=== PATIENT | female | born 1995 | race Asian ===

== ENCOUNTER 2016-06-28 14:30 | Outpatient (CLI) | payer OTHER ==
[2016-06-28 14:50] VITALS: BMI 34.4
--- NOTE | 2016-06-28 16:21 | US ---
EXAMINATION : OB LIMITED HISTORY: Postdates. COMPARISONS: Exam dated 04/18/2016. FINDINGS: There is a live intrauterine fetus with a heart rate of 153 bpm. Is in vertex presentation. There is polyhydramnios with an ARMINDA of 23.39 cm. Placenta is grade 3. Two-vessel cord is again demonstrated. IMPRESSION: 1. Live intrauterine fetus in vertex presentation. 2. Polyhydramnios. 3. Two-vessel cord.
== END 2016-06-28 16:38 | disposition home or self-care (01) ==
LOC: FBCOUT 14:30 → FBC 14:31 → FBCOUT 16:38
PROVIDERS: ATTEND Family Medicine
DX: O48.0 Post-term pregnancy (principal); O40.9XX0 Polyhydramnios, unspecified trimester, not applicable or unspecified; Z3A.00 Weeks of gestation of pregnancy not specified

== ENCOUNTER 2016-07-01 10:02 | Outpatient (CLI) | payer OTHER | END 2016-07-01 11:00 | disposition home or self-care (01) | LOC: FBCOUT 10:02 → FBC 10:04 → FBCOUT 11:00 | PROVIDERS: ATTEND Family Medicine | DX: Z34.03 Encounter for supervision of normal first pregnancy, third trimester (principal); Z3A.40 40 weeks gestation of pregnancy ==

== ENCOUNTER 2016-07-05 14:34 | Outpatient (CLI) | payer OTHER ==
[2016-07-05 14:52] VITALS: BMI 35.3
== END 2016-07-05 15:27 | disposition home or self-care (01) ==
LOC: FBCOUT 14:34 → FBC 14:37 → FBCOUT 15:27
PROVIDERS: ATTEND Family Medicine
DX: Z34.03 Encounter for supervision of normal first pregnancy, third trimester (principal); Z3A.41 41 weeks gestation of pregnancy

== ENCOUNTER 2016-07-07 06:14 | Inpatient (IN) | payer OTHER ==
[2016-07-07] MEDS ORDERED: LIDOCAINE 1% (PRES FREE) 30 ML VIAL ONE (07:25)
[2016-07-07] MEDS ORDERED: LIDOCAINE Viscous 2% 15 ML UDCUP ONE (07:25)
[2016-07-07] MEDS ORDERED: OXYTOCIN 10 UNITS/ML VIAL ONE (07:25)
[2016-07-07] MEDS ORDERED: SODIUM CHLORIDE 0.9% FLUSH 10 ML ONE (07:25)
[2016-07-07] MEDS ORDERED: MINERAL OIL 25 ML BOT ONE (07:25)
[2016-07-07] MEDS ORDERED: IV START KIT ONE (07:25)
[2016-07-07] MEDS ORDERED: PUMP TUBING ONE (07:26)
[2016-07-07] MEDS ORDERED: OXYTOCIN IN NS 500 ML IV ONE (07:26)
[2016-07-07] MEDS ORDERED: OXYTOCIN IN NS 500 ML IV PRN (07:53)
[2016-07-07] MEDS ORDERED: OXYTOCIN IN NS 334 ML IV PRN (07:53)
[2016-07-07 08:12] LABS: HEMATOCRIT 36.6 % (37.0-47.0); HEMOGLOBIN 11.6 gm/l (12.0-16.0); MEAN CELL VOLUME 84.9 fl (81.0-99.0); MEAN CORPUSCULAR HEMOGLOBIN 26.9 pg (27.0-31.0); MEAN CORPUSCULAR HGB CONC 31.7 g/dl (33.0-37.0); RED CELL DISTRIBUTION WIDTH 13.3 % (11.5-14.5)
[2016-07-07] MEDS: MISOPROSTOL 25 MCG TABLET VG SCH ×4 (09:02→22:30)
[2016-07-07 09:23] VITALS: BMI 35.8
--- NOTE | 2016-07-07 13:01 | PCMAN ---
OB Admission Note - History : 1 Term: 0 : 0 Abortions (S&E): 0 Livin EDC:: 06/28/16 Gestational Age (weeks): 41 Days (#/7): 2 Admit Cervical Dilation:: 1-2 Admit Cervical Effacement (%):: 60 Admit Station:: -3 Admit Presentaton:: vertex Membrane Status: Intact Contractions: Yes Contraction Frequency:: irregular Heart Rate:: 145 Status:: category 1 EFW:: 7.5 Summary of Course:: Normal course, 2 VC discovered on US otherwise no growth restriction - Labs Blood Type: A (+) positive Hct/Hgb:: 36.6/11.6 Rubella Status: Immune GBS Status: Negative Abnormal Labs: None - Physical Exam General: Afebrile, No Acute Distress Psych/Mental Status: Mood/Affect Appropriate Neurological: Grossly Intact, Alert, Oriented x 4, Normal Gait, Normal Speech, Normal Reflexes, Cranial Nerves 3-12 Intact HEENT: Atraumatic, PERRLA, EOMI, Mucous membr. moist/pink Lungs: Clear to Auscultation Bilaterally Cardiovascular: Regular Rate and Rhythm, No Murmur Abdomen: Normal Bowel Sounds Genitourinary: Normal Female Genitalia Extremities: Full ROM, No Edema DTR: Patellar (L): 2+ (Brisk, Normal), Patellar (R): 2+ (Brisk, Normal) Skin: Normal Color, No Rash - Problems (1) Post term Status: Acute Code: O48.0Assessment/Plan: Induction started with cytotec, followed by Pitocin (2) Two vessel umbilical cord in gross , antepartum Status: Acute Code: O09.899Assessment/Plan: NO IUGR on US, isolated (3) Primiparous, antepartum Status: Acute Code: Z34.00
--- NOTE | 2016-07-07 13:03 | PDOC36 ---
Provider Note Subject: S/ Cramping but not overly uncomfortable O/ UC q 4-5 min cervix 2cm/75%/-2 FHR category until just after I checked her there was a 2 min decel to 90s, recovered w position change but variability a bit decreased, will get reactive NST before starting Pit A/Early labor P/Pitocin when deemed safe. Lisa Charles MD
[2016-07-07] MEDS: LACTATED RINGERS 1,000 ML IV SCH ×2 (13:30→18:11)
[2016-07-07] MEDS ORDERED: LACTATED RINGERS 1,000 ML IV SCH (14:45)
[2016-07-07] MEDS ORDERED: PENICILLIN G POTASSIUM 5 MMU in NS 0.9% (MINI-BAG PLUS) 100 ML IV ONE (15:00)
[2016-07-07] MEDS ORDERED: NS 0.9% (MINI-BAG PLUS) 100 ML IV ONE (15:01)
[2016-07-07] MEDS ORDERED: PENICILLIN G POTASSIUM 5 MMU VIAL ONE (15:01)
--- NOTE | 2016-07-07 18:05 | PDOC36 ---
Provider Note Subject: S/ Terrible left flank pain started suddenly right before I came in, contractions are mild O/VSS AFeb, FHR 130s cat 1, 1 or 2 variable decels in last 2 hours Cervix 2.5/85%/-2/mid Left thoracic paraspinal muscle tender and spasm palpated A/Slow progress in labor GBS positive, PCN protocol going P/Continue current Pitocin, will try heating pad and dose of Fentanyl for the back. Lisa Charles MD
[2016-07-07] MEDS: FENTANYL 100 MCG/2 ML VIAL IV PRN (18:25)
[2016-07-07] MEDS ORDERED: PENICILLIN G 3 MIL UNIT PREMIX 50 ML IV ONE ×2 (19:00→23:01)
[2016-07-07] MEDS: PENICILLIN G 3 MIL UNIT PREMIX 3 MMU in Premix (D5W) 50 ml 1 EACH IV SCH ×2 (19:07→23:04)
--- NOTE | 2016-07-07 21:56 | PDOC36 ---
Provider Note Subject: S/ More painful contractions now O/VSS Afeb, FHR 150 category 1 Cervix 4 cm/90%/-2, AROM clear fluid A/Active labor now P/Patient will likely want epidural, trying a bath first. Lisa Charles MD
[2016-07-07] MEDS ORDERED: EPIDURAL PUMP SET ONE (23:50)
[2016-07-07] MEDS ORDERED: FENTANYL/ROPIVACAINE EPIDURAL 250 ML EP ONE (23:50)
[2016-07-08] MEDS ORDERED: EPIDURAL PROCEDURE TRAY ONE (00:43)
[2016-07-08] MEDS ORDERED: ROPIVACAINE 0.5% 30 ML VIAL ONE (00:43)
[2016-07-08] MEDS: MISOPROSTOL 25 MCG TABLET VG SCH ×2 (02:32→05:53)
[2016-07-08] MEDS ORDERED: PENICILLIN G 3 MIL UNIT PREMIX 50 ML IV ONE ×2 (02:53→07:03)
[2016-07-08] MEDS: PENICILLIN G 3 MIL UNIT PREMIX 3 MMU in Premix (D5W) 50 ml 1 EACH IV SCH ×3 (03:08→18:30)
[2016-07-08] MEDS: LACTATED RINGERS 1,000 ML IV SCH ×2 (03:29→05:02)
[2016-07-08] MEDS: FENTANYL 100 MCG/2 ML VIAL IV PRN (07:51)
--- NOTE | 2016-07-08 08:13 | PDOC36 ---
Provider Note Subject: S/ Pain worsened since 0600, most of pain is in mid back O/VSS Afeb FHR 130, category 2, variable decels with some contractions, overall improved variability Cervix 9.5/100%/0 A/ Nearing stage 2, baby looks better overall on monitor P/Continue expectant management. Start pushing when complete and she is feeling more of an urge to push. Lisa Charles MD
[2016-07-08] MEDS ORDERED: LIDOCAINE 1% (PRES FREE) 30 ML VIAL IF ONE (10:40)
--- NOTE | 2016-07-08 11:27 | PCMDEL ---
Delivery Note - Labor 1st stage (hr/min):: 11 hr/ 14 min 2nd stage (hr/min):: 1 hr/ 38 min 3rd stage (hr/min):: 6 min Total (hr/min):: 14 hr/ 35 min Pushed (hr/min):: 1 hr - Delivery Delivery (Date): 07/08/16 Delivery (Time): 10:34 Gender: Female Presentation: Cephalic Position: OA Umbilical Cord: 2 Vessel Delayed Cord Clamping:: < 1 min 1 Minute Total: 8 5 Minute Total: 9 Placenta:: intact EBL:: 150 ml Perineum:: 2nd degree perineal lac Suture:: 2-0 chromic Anesthesia/Meds:: epidural and local for repair Length ROM:: 12 hr/ 51 min Comments:: Slow progress through labor but eventually delivered. There were some category 2 periods of time on the strip but it improved toward the end and never looked ominous. The baby was limp at delivery but tone normalized within 1 minute. Cord was milked and cut at about 30 sec to get the baby over for resusitation. Mother and stable post .
[2016-07-08] MEDS ORDERED: ACETAMINOPHEN 325 MG TABLET PO PRN (11:36)
[2016-07-08] MEDS ORDERED: CALCIUM CARBONATE 500 MG TAB.CHEW PO PRN (11:36)
[2016-07-08] MEDS ORDERED: BENZOCAINE/MENTHOL 60 APPLIC/BOT TP PRN (11:36)
[2016-07-08] MEDS ORDERED: OXYCODONE HCL 5 MG TABLET PO PRN (11:36)
[2016-07-08] MEDS ORDERED: OXYTOCIN IN NS 167 ML IV PRN (11:36)
[2016-07-08] MEDS ORDERED: LANOLIN 50 APPLIC/7G TUBE TP PRN (11:36)
[2016-07-08] MEDS: PRENATAL VIT/FE FUMARATE/FA 1 TABLET PO SCH (18:31)
[2016-07-08] MEDS: IBUPROFEN 800 MG TABLET PO PRN (19:59)
[2016-07-09] MEDS: IBUPROFEN 800 MG TABLET PO PRN ×3 (01:56→14:06)
[2016-07-09 07:36] LABS: HEMATOCRIT 32.3 % (37.0-47.0); HEMOGLOBIN 10.2 gm/l (12.0-16.0)
[2016-07-09] MEDS: PRENATAL VIT/FE FUMARATE/FA 1 TABLET PO SCH (07:56)
[2016-07-09 08:11] VITALS: BP 117/64
[2016-07-09] MEDS ORDERED: DOCUSATE SODIUM 100 MG CAPSULE PO SCH (09:00)
--- NOTE | 2016-07-09 12:42 | PDOC39B ---
Hospital Course: ADMIT DATE: 07/07/16 DISCHARGE DATE: 07/09/16 ADMISSION DIAGNOSES: Post term , 2 vessel umbilical cord, GBS positive PROCEDURES: Spontaneous Vaginal Delivery HISTORY OF PRESENT ILLNESS: 21 year old G1 T0 L0 at 41 weeks 3 days presented for post dates induction, started with cytotec and moved to [facility]. SHE went into active labor with the amniotomy and progressed to delivery. She required 2 doses of IV Fentanyl and an epidural for pain relief. There were some changes on the monitoring that required specific treatment with position changes and Oxygen but overall, nothing ominous was noted. HOSPITAL COURSE: The patient had an uncomplicated post course. By day of discharge the patient is ambulating, eating, voiding, and passing flatus without difficulty. Pain is controlled and lochia is appropriate. She is [] - Physical Exam Vital Signs: Temp Pulse Resp BP Pulse Ox 98.4 F 84 18 117/64 07/09/16 07:55 07/09/16 07:55 07/09/16 07:55 07/09/16 07:55 General: Afebrile, No Acute Distress Psych/Mental Status: Mood/Affect Appropriate Neurological: Grossly Intact, Alert, Oriented x 4, Normal Speech HEENT: Atraumatic, PERRLA, EOMI, Mucous membr. moist/pink Lungs: Clear to Auscultation Bilaterally Cardiovascular: Regular Rate and Rhythm, No Murmur Breast: Soft, Skin intact, No Nipples Cracked Fundus: Firm, Midline, At Umbilicus Abdomen: Normal Bowel Sounds Genitourinary: Normal Female Genitalia, Other (sutures intact), No Edema Lochia: Light Extremities: Full ROM, No Edema Skin: Normal Color, Warm, Dry, Intact, No Rash Wound: Well Approximated - Discharge Diagnosis (1) Normal vaginal delivery Status: AcuteAssessment/Plan: stable, discharge home, FU in 6 weeks. (2) Perineal laceration during delivery, delivered Status: AcuteAssessment/Plan: healing well, no complications. - Discharge Plan Condition: Good Disposition: Home Instruction Forms: Vaginal Discharge Instructions Prescriptions: Ibuprofen [IBUPROFEN 800 MG TABLET (SHF)] 800 mg PO Q6H PRN #30 PRN Reason: Pain (Mild) Oxycodone HCl [ROXICODONE 5 MG IR TABLET (SHF)] 5 - 10 mg PO Q3H PRN #20 PRN Reason: Pain (Severe) Follow-Up: Nellie Charles MD [Primary Care Provider] - In 6 weeks
== END 2016-07-09 15:45 | disposition home or self-care (01) | DRG 775 ==
LOC: FBC 06:58
PROVIDERS: ADMIT Family Medicine; ATTEND Family Medicine
PROC: 3E033VJ Introduction of Other Hormone into Peripheral Vein, Percutaneous Approach (ICD-10-PCS; 2016-07-07)
PROC: 10907ZC Drainage of Amniotic Fluid, Therapeutic from Products of Conception, Via Natural or Artificial Opening (ICD-10-PCS; 2016-07-07)
PROC: 10E0XZZ Delivery of Products of Conception, External Approach (ICD-10-PCS; principal; 2016-07-08)
PROC: 0KQM0ZZ Repair Perineum Muscle, Open Approach (ICD-10-PCS; 2016-07-08)
PROC: 00HU33Z Insertion of Infusion Device into Spinal Canal, Percutaneous Approach (ICD-10-PCS; 2016-07-08)
DX: O48.0 Post-term pregnancy (principal); O70.1 Second degree perineal laceration during delivery; O99.824 Streptococcus B carrier state complicating childbirth; O69.89X0 Labor and delivery complicated by other cord complications, not applicable or unspecified; O76 Abnormality in fetal heart rate and rhythm complicating labor and delivery; O75.89 Other specified complications of labor and delivery; M62.830 Muscle spasm of back; Z37.0 Single live birth; Z3A.41 41 weeks gestation of pregnancy